=== PATIENT | female | born 1965 | race Caucasian/White ===

== ENCOUNTER 2023-06-10 11:45 | Inpatient (IN) | payer MEDICARE, MEDICAID ==
[~2023-06-10] VITALS: Ht 160 cm; Wt 72.1 kg
[2023-06-10] MEDS ORDERED: FLUO10CA24 PO (12:06)
[2023-06-10] MEDS ORDERED: METF-1211 PO (12:06)
[2023-06-10] MEDS ORDERED: GLIP5TAB15 PO (12:06)
[2023-06-10] MEDS ORDERED: ATOR20TA PO (12:06)
[2023-06-10 12:54] LABS: COVID AG,FIA SOURCE NASAL SWAB
[2023-06-10 13:07] LABS: ALCOHOL, URINE DRUG SCREEN NEGATIVE (NEGATIVE); AMPHET/METH SCREEN,URINE NEGATIVE (NEGATIVE); BARBITURATE SCREEN, URINE NEGATIVE (NEGATIVE); BENZODIAZEPINES SCREEN,URINE NEGATIVE (NEGATIVE); CANNABINOID SCREEN,URINE NEGATIVE (NEGATIVE); COCAINE SCREEN,URINE NEGATIVE (NEGATIVE); METHADONE SCREEN, URINE NEGATIVE (NEGATIVE); OPIATE SCREEN,URINE NEGATIVE (NEGATIVE); PHENCYCLIDINE SCREEN,URINE NEGATIVE (NEGATIVE)
[2023-06-10 13:12] LABS: SARS-COV2 (COVID) ANTIGEN,FIA Negative (Negative)
[2023-06-10 14:49] LABS: BASOPHILS % (AUTO) 0.4 % (0.0-2.0); HEMATOCRIT 42.7 % (36-46); HEMOGLOBIN 14.3 g/dL (12.0-16.0); LYMPHOCYTES # (AUTO) 2.5 K/uL (1.0-4.8); LYMPHOCYTES % (AUTO) 30.6 % (22.0-44.0); MEAN CORPUSCULAR HGB CONC 33.6 G/dL (31.0-37.0); MEAN CORPUSCULAR VOLUME 89 fL (80-100); MONOCYTES # (AUTO) 0.4 K/uL (0.1-1.0); MONOCYTES % (AUTO) 5.4 % (2.0-9.0); NEUTROPHILS # (AUTO) 5.1 K/uL (1.8-7.7); NEUTROPHILS % (AUTO) 62.6 % (40.0-70.0); PLATELET COUNT (AUTO) 244 K/uL (150-450); RED BLOOD CELL COUNT(AUTO) 4.77 MIL/uL (4.00-5.20); RED CELL DISTRIBUTION WIDTH 12.8 % (11.5-14.5); WHITE BLOOD COUNT (AUTO) 8.1 K/uL (4.5-11.0)
[2023-06-10] MEDS ORDERED: ZOLPIDEM TARTRATE 10 MG TABLET PO PRN (15:00)
[2023-06-10] MEDS ORDERED: QUEtiapine FUMARATE 100 MG TABLET PO PRN (15:00)
[2023-06-10] MEDS ORDERED: LORazepam 2 MG TABLET PO PRN (15:00)
[2023-06-10 15:04] LABS: ANION GAP 13 mmol/L (8-16); CALCIUM, TOTAL 9.1 mg/dL (8.8-10.5); CARBON DIOXIDE 25 mmol/L (22-29); CHLORIDE 99 mmol/L (98-107); CREATININE 0.63 mg/dL (0.60-1.30); GLOMERULAR FILTR. RATE CALC > 60 mL/min (>60); GLUCOSE,RANDOM 340 mg/dL (70-110); POTASSIUM 3.8 mmol/L (3.5-5.1); SODIUM SERUM 137 mmol/L (136-145); UREA NITROGEN, BLOOD 15 mg/dL (7-18)
[2023-06-10 15:08] LABS: ALCOHOL, BLOOD (SERUM) < 3 mg/dL (0-10)
[2023-06-10 15:10] LABS: ALANINE AMINOTRANSFERASE 26 U/L (12-78); ALBUMIN 3.3 g/dL (3.4-5.0); ALKALINE PHOSPHATASE 45 U/L (46-116); ASPARTATE AMINOTRANSFERASE 16 U/L (15-37); BILIRUBIN,TOTAL 0.3 mg/dL (0.1-1.0); TOTAL PROTEIN, SERUM 7.4 g/dL (6.4-8.2)
[2023-06-10] MEDS: SODIUM CHLORIDE 0.9% 1,000 ML IV ONE (15:29)
[2023-06-10] MEDS: INSULIN REGULAR, HUMAN 100 UNITS/ML SQ ONE (15:59)
[2023-06-10 21:15] LABS: APPEARANCE,URINE CLEAR (CLEAR); BILIRUBIN,URINE NEGATIVE (NEGATIVE); COLOR,URINE COLORLESS (YELLOW); GLUCOSE, URINE (UA) >=1000 mg/dL (NEGATIVE); KETONES,URINE NEGATIVE (NEGATIVE); LEUKOCYTE ESTERASE ,URINE NEGATIVE (NEGATIVE); NITRATE,URINE NEGATIVE (NEGATIVE); OCCULT BLOOD,URINE NEGATIVE (NEGATIVE); PROTEIN,URINE NEGATIVE (NEGATIVE); SPECIFIC GRAVITIY, URINE 1.011 (1.003-1.030); UROBILINOGEN,URINE <=1.0 mg/dL (<=1.0)
[2023-06-10 21:25] VITALS: BP 147/93; PULSE 105; RESP 18; TEMP 97.5; O2SAT 99
[2023-06-10 21:28] LABS: BACTERIA,URINE None Seen /HPF (None Seen); RBC,URINE None Seen /HPF (0-2); WBC,URINE None Seen /HPF (0-5)
[2023-06-11] MEDS ORDERED: IBUPROFEN 400 MG TABLET PO PRN (07:00)
[2023-06-11] MEDS ORDERED: ACETAMINOPHEN 325 MG TABLET PO PRN (07:00)
[2023-06-11] MEDS ORDERED: DOCUSATE SODIUM 100 MG CAPSULE PO PRN (07:00)
[2023-06-11] MEDS ORDERED: MAG HYDROX/ALUMINUM HYD/SIMETH ES 30 ML SUSPENSION UDCUP PO PRN (07:00)
[2023-06-11] MEDS ORDERED: ONDANSETRON HCL 4 MG TABLET PO PRN (07:00)
[2023-06-11] MEDS ORDERED: CloNIDine HCL 0.1 MG TABLET PO PRN (07:00)
[2023-06-11] MEDS ORDERED: GuaiFENesin/D-METHORPHAN [SUGAR-FREE] 200-20MG/10 ML SYRUP UDCUP PO PRN (07:00)
[2023-06-11] MEDS ORDERED: ALBUTEROL SULFATE HFA 90 MCG/PUFF 8 GM INHALER IH PRN (07:00)
[2023-06-11] MEDS ORDERED: NICOTINE 14 MG/24 HOUR PATCH TD PRN (07:00)
[2023-06-11] MEDS ORDERED: MAGNESIUM HYDROXIDE SUSPENSION 30 ML UDCUP PO PRN (07:00)
[2023-06-11] MEDS ORDERED: LOPERAMIDE HCL 2 MG CAPSULE PO PRN (07:00)
[2023-06-11] MEDS ORDERED: PETROLATUM,WHITE 28 GM JELLY TP PRN (07:00)
[2023-06-11] MEDS: ATORVASTATIN CALCIUM 20 MG TABLET PO SCH (09:00)
[2023-06-11 15:59] VITALS: BP 99/58; PULSE 80; RESP 18; TEMP 97.5; O2SAT 99
[2023-06-11] MEDS: MetFORMIN HCL 500 MG TABLET PO SCH (16:58)
[2023-06-11 21:35] VITALS: BP 145/80; PULSE 86; RESP 19; TEMP 97.6; O2SAT 98
[2023-06-12] MEDS: GlipiZIDE 5 MG TABLET PO SCH (06:30)
[2023-06-12] MEDS ORDERED: GLUCAGON,HUMAN RECOMBINANT 1 MG VIAL IM PRN (07:15)
[2023-06-12] MEDS ORDERED: INSULIN LISPRO 100 UNITS/ML SQ PRN (07:15)
[2023-06-12] MEDS: FLUoxetine HCL 20 MG CAPSULE PO SCH (09:00)
[2023-06-12 14:24] VITALS: BP 133/67; PULSE 99; RESP 17; TEMP 97.9; O2SAT 100
[2023-06-12] MEDS: QUEtiapine FUMARATE 100 MG TABLET PO SCH (21:00)
[2023-06-12 21:17] VITALS: BP 151/80; PULSE 80; RESP 18; TEMP 97.5; O2SAT 100
[2023-06-13 08:56] VITALS: BP 129/65; PULSE 95; RESP 18; TEMP 98; O2SAT 100
[2023-06-13 19:30] VITALS: BP 129/59; PULSE 90; RESP 17; TEMP 97.7; O2SAT 98
[2023-06-14 00:04] VITALS: BP 129/59; PULSE 90; RESP 17; TEMP 97.7; O2SAT 98
[2023-06-14 08:38] VITALS: RESP 18
[2023-06-14 21:15] VITALS: BP 128/96; PULSE 94; RESP 16; TEMP 97.3; O2SAT 97
[2023-06-15 08:53] VITALS: BP 130/65; PULSE 80; RESP 16; TEMP 97.9; O2SAT 100
[2023-06-15 11:51] LABS: GLUCOMETER DEV NAME(LOC) BV2S.; GLUCOSE,POINT OF CARE 583 MG/DL (70-110)
[2023-06-15] MEDS: INSULIN LISPRO 100 UNITS/ML SQ ONE (11:52)
[2023-06-15] MEDS: TIMOLOL MALEATE 0.5% 5 ML OPHTHALMIC SOLUTION OU SCH (12:31)
[2023-06-15 16:45] LABS: GLUCOMETER DEV NAME(LOC) BV2S.; GLUCOSE,POINT OF CARE 290 MG/DL (70-110)
[2023-06-15] MEDS: MetFORMIN HCL 500 MG TABLET PO SCH (17:00)
[2023-06-15 20:18] VITALS: BP 156/79; PULSE 98; RESP 17; TEMP 97.3; O2SAT 97
[2023-06-16] MEDS: GlipiZIDE 5 MG TABLET PO SCH (06:30)
[2023-06-16 09:50] VITALS: BP 130/69; PULSE 84; RESP 17; TEMP 97.2; O2SAT 96
[2023-06-16] MEDS ORDERED: GLIP5TAB15 PO (15:57)
[2023-06-16] MEDS ORDERED: METF-1211 PO (15:57)
[2023-06-16] MEDS ORDERED: ATOR20TA PO (15:57)
== END 2023-06-16 17:43 | disposition left against medical advice (07) | DRG 885 ==
LOC: EMS 11:47 → B2S 18:13
PROVIDERS: ADMIT Psychiatry & Neurology Psychiatry; ATTEND Psychiatry & Neurology Psychiatry
PROC: GZHZZZZ Group Psychotherapy (ICD-10-PCS; principal; 2023-06-14)
DX: F33.3 Major depressive disorder, recurrent, severe with psychotic symptoms (principal); Z59.00 Homelessness unspecified; R45.851 Suicidal ideations; E11.9 Type 2 diabetes mellitus without complications; E78.5 Hyperlipidemia, unspecified; G47.00 Insomnia, unspecified; Z20.822 Contact with and (suspected) exposure to COVID-19; Z60.8 Other problems related to social environment; Z53.29 Procedure and treatment not carried out because of patient's decision for other reasons; Z88.0 Allergy status to penicillin; Z88.1 Allergy status to other antibiotic agents; Z91.148 Patient's other noncompliance with medication regimen for other reason; Z79.899 Other long term (current) drug therapy; Z79.4 Long term (current) use of insulin
CPT/HCPCS: 80053; 80307; 81001; 82962; 85025; 99285; G0480; J1815